=== PATIENT | male | born 1985 | race Caucasian/White ===

== ENCOUNTER 2016-09-17 21:42 | Emergency (ER) | payer MEDICAID, OTHER ==
[~2016-09-17] VITALS: Ht 185.4 cm; Wt 92.1 kg
[~2016-09-17 21:42] MED LIST: MECL-62 PO
[2016-09-17 22:15] VITALS: BP 154/91; PULSE 94; RESP 18; TEMP 98.2; O2SAT 98
[2016-09-17] MEDS ORDERED: KETOROLAC TROMETHAMINE 60 MG/2 ML (IM) VIAL IM ONE (22:30)
[2016-09-17] MEDS ORDERED: TRAM50TA PO (22:39)
[2016-09-17] MEDS ORDERED: DICL75TA PO (22:39)
--- NOTE | 2016-09-17 22:39 | PD ---
HPI Chief Complaint: Pain: Acute or Chronic Time Seen by Provider: 22:34 Travel History International Travel<30 days: No Contact w/Intl Traveler<30days: No Traveled to known affect area: No History of Present Illness HPI 31-year-old male that presents to the ED for evaluation of left arch pain. Per patient she's had this for about 2-3 months now. Per patient his been reading about plantar fasciitis online his been trying to do OTC treatments with some relief that today for some reason the pain got worse. Per patient is hard to walk with it. He denies any trauma or injury. 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 He has no allergies to medication. No chest pain or shortness of breath. Per patient he has been trying to make appointments with a graphic design teacher for follow-up but nobody will take him. He states that currently the pain is 8 out of 10 and gets worse with touch as well as with weightbearing. He has no allergies to medication. No other medical problems. PFSH Past Medical History Anxiety: No Depression: No Heart Rhythm Problems: Yes (family hx of wpw, brother affected. ) Cancer: No Cardiovascular Problems: No Chemotherapy: No Diminished Hearing: No Endocrine: No Genitourinary: No Headaches: Yes Immune Disorder: No Musculoskeletal: Yes (FX L1, FX RT ANKLE) Neurologic: Yes (SKULL FX, SAH 03/2013, SMELL/TASTE/HEARING RIGHT EAR EFFECTED. ) Psychiatric: No Reproductive: No Respiratory: No Immunizations Current: Yes Radiation Therapy: No Tetanus Vaccination: < 5 Years Influenza Vaccination: No Past Surgical History Surgical History: No Previous Surgery Tonsillectomy: Yes Other Surgery: No Social History Alcohol Use: Yes (OCCASIONAL) Tobacco Use: Yes (QUIT 6 MO AGO) Substance Use: No Allergies-Medications (Allergen,Severity, Reaction): Coded Allergies: No Known Allergies (Verified , 09/17/16) Reported Meds & Prescriptions Reported Meds & Active Scripts Active No Active Prescriptions or Reported Medications Review of Systems Except as stated in HPI: all other systems reviewed are Neg Physical Exam Narrative GENERAL: SKIN: Warm and dry. HEAD: Atraumatic. Normocephalic. EYES: Pupils equal and round. No scleral icterus. No injection or drainage. ENT: No nasal bleeding or discharge. Mucous membranes pink and moist. Tongue is midline. No uvula deviation. NECK: Trachea midline. No JVD. CARDIOVASCULAR: Regular rate and rhythm. RESPIRATORY: No accessory muscle use. Clear to auscultation. Breath sounds equal bilaterally. GASTROINTESTINAL: Abdomen soft, non-tender, nondistended. Hepatic and splenic margins not palpable. MUSCULOSKELETAL: Extremities without clubbing, cyanosis, or edema. No obvious deformities. Patient has reproducible pain on the left plantar aspect of the medial aspect of the foot. Very tender to touch in this area. Weightbearing makes it worse. No obvious bony deformity noted. No mass or cyst noted. Full range of motion of the entire food and ankle. NEUROLOGICAL: Awake and alert. No obvious cranial nerve deficits. Motor grossly within normal limits. Five out of 5 muscle strength in the arms and legs. Normal speech. PSYCHIATRIC: Appropriate mood and affect; insight and judgment normal. Data Data Last Documented VS Vital Signs Date Time Temp Pulse Resp B/P Pulse Ox O2 Delivery O2 Flow Rate FiO2 09/17/16 22:15 98.2 94 18 154/91 98 Orders Foot, Complete (Oex0hcl) (09/17/16 22:23) Ketorolac Inj (Toradol Inj) (09/17/16 22:30) MDM Medical Decision Making Medical Screen Exam Complete: Yes Emergency Medical Condition: Yes Medical Record Reviewed: Yes Interpretation(s) X-ray of the left foot show no sign of bony injury. Differential Diagnosis Plan the fasciitis versus acute on chronic pain versus tendinitis Narrative Course 31-year-old male that presents to the ED for evaluation of left arch pain. Patient was properly examined and was found to have signs and symptoms consistent appears to be plantar fasciitis. X-ray was done. This was negative for acute disease. Patient was reassured. Patient will be given a prescription for diclofenac sodium and tramadol. Patient was told to follow up closely with PCP. See ED for worsening symptoms. Diagnosis Primary Impression: Plantar fasciitis of left foot Patient Instructions: General Instructions Additional Instructions: Take medications as prescribed. Follow with PCP. See ED worsening symptoms. Ice or warm compresses as needed. Med/Other Pt SpecificInfo: Prescription(s) given Scripts No Active Prescriptions or Reported Meds Disposition: 01 DISCHARGE HOME Condition: Stable Jas Devine Sep 17, 2016 22:38
--- NOTE | 2016-09-17 22:51 | RADHPO ---
EXAM DATE/TIME: 09/17/2016 22:37 [facility] COMPARISON: No previous studies available for comparison. INDICATIONS : Left foot pain in arch for 3 months, no known injury. MEDICAL HISTORY : None. SURGICAL HISTORY : None. ENCOUNTER: Initial ACUITY: 3 months PAIN SCORE: 5/10 LOCATION: Left foot. FINDINGS: No definite fractures, or dislocations are identified. No definite lytic or sclerotic lesion is seen . The joint spaces are well maintained. CONCLUSION: Unremarkable study. Ame Olsen MD on September 17, 2016 at 22:48 Board Certified Radiologist. This report was verified electronically.
== END 2016-09-17 22:56 | disposition home or self-care (01) ==
LOC: PHEFT 21:42
DX: M72.2 Plantar fascial fibromatosis (principal)
CPT/HCPCS: 73630; 96372; 99283; J1885

== ENCOUNTER 2016-09-21 13:11 | Emergency (ER) | payer MEDICAID, OTHER ==
[~2016-09-21] VITALS: Ht 185.4 cm; Wt 89.8 kg
[~2016-09-21 13:11] MED LIST changes: +DICL75TA PO; -MECL-62 PO; +TRAM50TA PO
[2016-09-21 13:15] VITALS: BP 149/111; PULSE 75; RESP 16; TEMP 97.7; O2SAT 100
[2016-09-21] MEDS ORDERED: SODIUM CHLOR 0.9% 1000 ML INJ 1,000 ML IV SCH (13:27)
[2016-09-21] MEDS ORDERED: ONDANSETRON HCL 4 MG/2 ML VIAL IVP ONE (13:30)
--- NOTE | 2016-09-21 13:34 | PD ---
HPI Chief Complaint: GI Complaint Time Seen by Provider: 13:27 Travel History International Travel<30 days: No Contact w/Intl Traveler<30days: No Traveled to known affect area: No History of Present Illness HPI Patient is a 31-year-old male presents with nausea vomiting and diarrhea since about 08 100 this morning. Patient states that he had a few cocktails last night and his last one was at 11 PM. He states this happened to him one time in the past. Patient states she's having "bile" production but denies any green or bloody emesis. States his belly is cramping but not truly painful. States the cramping nature is periumbilical. Denies any fevers. Denies any bloody or melena stools. Denies any dysuria. States symptoms been stable moderate in intensity. PFSH Past Medical History Anxiety: No Depression: No Heart Rhythm Problems: Yes (family hx of wpw, brother affected. ) Cancer: No Cardiovascular Problems: No Chemotherapy: No Diminished Hearing: No Endocrine: No Genitourinary: No Headaches: Yes Immune Disorder: No Musculoskeletal: Yes (FX L1, FX RT ANKLE) Neurologic: Yes (SKULL FX, SAH 03/2013, SMELL/TASTE/HEARING RIGHT EAR EFFECTED. ) Psychiatric: No Reproductive: No Respiratory: No Immunizations Current: Yes Radiation Therapy: No Past Surgical History Tonsillectomy: Yes Other Surgery: No Social History Alcohol Use: Yes (OCCASIONAL) Tobacco Use: Yes (QUIT 6 MO AGO) Substance Use: No Allergies-Medications (Allergen,Severity, Reaction): Coded Allergies: No Known Allergies (Verified , 09/21/16) Reported Meds & Prescriptions Reported Meds & Active Scripts Active Zofran Odt (Ondansetron Odt) 4 Mg Tab 4 Mg SL Q6HR PRN Phenergan (Promethazine HCl) 25 Mg Tab 25 Mg PO Q6H PRN Review of Systems Except as stated in HPI: all other systems reviewed are Neg Physical Exam Narrative GENERAL: Well-developed well-nourished no apparent distress SKIN: Focused skin assessment warm/dry. HEAD: Atraumatic. Normocephalic. EYES: Pupils equal and round. No scleral icterus. No injection or drainage. ENT: No nasal bleeding or discharge. Mucous membranes pink and moist. NECK: Trachea midline. No JVD. CARDIOVASCULAR: Regular rate and rhythm. No murmur appreciated. RESPIRATORY: No accessory muscle use. Clear to auscultation. Breath sounds equal bilaterally. GASTROINTESTINAL: Abdomen soft, non-tender, nondistended. Hepatic and splenic margins not palpable. MUSCULOSKELETAL: No obvious deformities. No clubbing. No cyanosis. No edema. NEUROLOGICAL: Awake and alert. No obvious cranial nerve deficits. Motor grossly within normal limits. Normal speech. PSYCHIATRIC: Appropriate mood and affect; insight and judgment normal. Data Data Last Documented VS Vital Signs Date Time Temp Pulse Resp B/P Pulse Ox O2 Delivery O2 Flow Rate FiO2 09/21/16 13:41 16 100 Room Air 09/21/16 13:15 97.7 75 149/111 Orders Complete Blood Count With Diff (09/21/16 13:27) Comprehensive Metabolic Panel (09/21/16 13:27) Lipase (09/21/16 13:27) Iv Access Insert/Monitor (09/21/16 13:27) Ecg Monitoring (09/21/16 13:27) Oximetry (09/21/16 13:27) Ondansetron Inj (Zofran Inj) (09/21/16 13:30) Sodium Chlor 0.9% 1000 Ml Inj (Ns 1000 M (09/21/16 13:27) Sodium Chloride 0.9% Flush (Ns Flush) (09/21/16 13:30) Ct Abd/Pel W Iv Contrast(Rout) (09/21/16 ) Iohexol 350 Inj (Omnipaque 350 Inj) (09/21/16 14:48) Ondansetron Inj (Zofran Inj) (09/21/16 15:30) Sodium Chlor 0.9% 1000 Ml Inj (Ns 1000 M (09/21/16 15:30) Labs Laboratory Tests Test 09/21/16 13:30 White Blood Count 14.1 TH/MM3 Red Blood Count 5.69 MIL/MM3 Hemoglobin 16.7 GM/DL Hematocrit 49.2 % Mean Corpuscular Volume 86.4 FL Mean Corpuscular Hemoglobin 29.4 PG Mean Corpuscular Hemoglobin 34.0 % Concent Red Cell Distribution Width 12.1 % Platelet Count 216 TH/MM3 Mean Platelet Volume 8.6 FL Neutrophils (%) (Auto) 82.0 % Lymphocytes (%) (Auto) 11.2 % Monocytes (%) (Auto) 4.4 % Eosinophils (%) (Auto) 0.2 % Basophils (%) (Auto) 2.2 % Neutrophils # (Auto) 11.6 TH/MM3 Lymphocytes # (Auto) 1.6 TH/MM3 Monocytes # (Auto) 0.6 TH/MM3 Eosinophils # (Auto) 0.0 TH/MM3 Basophils # (Auto) 0.3 TH/MM3 CBC Comment DIFF FINAL Differential Comment Sodium Level 142 MEQ/L Potassium Level 4.3 MEQ/L Chloride Level 107 MEQ/L Carbon Dioxide Level 26.7 MEQ/L Anion Gap 8 MEQ/L Blood Urea Nitrogen 14 MG/DL Creatinine 0.92 MG/DL Estimat Glomerular Filtration 96 ML/MIN Rate Random Glucose 140 MG/DL Calcium Level 9.6 MG/DL Total Bilirubin 0.6 MG/DL Aspartate Amino Transf 40 U/L (AST/SGOT) Alanine Aminotransferase 97 U/L (ALT/SGPT) Alkaline Phosphatase 85 U/L Total Protein 8.1 GM/DL Albumin 4.7 GM/DL Lipase 132 U/L MDM Medical Decision Making Medical Screen Exam Complete: Yes Emergency Medical Condition: Yes Differential Diagnosis Gastritis, gastritis, pancreatitis, less likely is appendicitis. Narrative Course Patient was roomed in emergency department, he appears well and in no obvious distress. He was given Zofran, despite this he did have a large volume emesis in the emergency department. His labs were notable for transaminitis with an ALT AST predominance. Patient states she's been tested for hepatitis in the past and been negative. I recommended that he pursue repeat testing on outpatient basis. He is not jaundice and is making adequate protein at this point and is not an acute liver failure. He verbalized understanding. Patient's labs do show an elevated white blood cell count, after reviewing the labs he was reexamined and states that his discomfort is more in the right lower quadrant at this point. He was offered pain medicine for a second time and declined. CT scan will be pursued to rule out appendicitis: Last 24 hours Impressions Abdomen/Pelvis CT 09/21/16 0000 Signed Impressions: Service Date/Time: September 14:36 - CONCLUSION: Normal trauma CT of the abdomen and pelvis. Stephen Gimenez MD He was given an additional dose of Zofran. Discussed with him that I be happy to observe him for longer in the emergency department that he would like to go home and manage his symptoms at home. Prescription for Zofran and Phenergan were written. He is stable for discharge at this time. Diagnosis Primary Impression: Abdominal pain Qualified Code: R10.84 - Generalized abdominal pain Additional Impression: Gastroenteritis Med/Other Pt SpecificInfo: Prescription(s) given Scripts Ondansetron Odt (Zofran Odt)4 Mg Tab4 Mg SL Q6HR PRN (Nausea/Vomiting) #30 TAB Ref 0 Prov:Diogo Garcia MD 09/21/16 Promethazine (Phenergan)25 Mg Tab25 Mg PO Q6H PRN (Nausea/Vomiting) #20 TAB Ref 0 Prov:Diogo Garcia MD 09/21/16 Disposition: DISCHARGE HOME Condition: Stable Diogo Garcia MD September 21, 2016 13:34
[2016-09-21 13:41] VITALS: RESP 16; O2SAT 100
[2016-09-21] MEDS: SODIUM CHLORIDE 0.9% FLUSH 10 ML FLUSH IV FLUSH PRN ×2 (13:49→15:32)
[2016-09-21 13:50] LABS: AUTOMATED NEUTROPHIL # 11.6 TH/MM3 (1.8-7.7); BASOPHIL # 0.3 TH/MM3 (0-0.2); BASOPHIL % 2.2 % (0.0-2.0); EOSINOPHIL % 0.2 % (0.0-4.0); HEMATOCRIT 49.2 % (39.0-51.0); LYMPH % 11.2 % (9.0-44.0); LYMPHOCYTE # 1.6 TH/MM3 (1.0-4.8); MEAN CELL VOLUME 86.4 FL (80.0-100.0); MEAN CORPUSCULAR HEMOGLOBIN 29.4 PG (27.0-34.0); MONO % 4.4 % (0.0-8.0); PLATELET COUNT 216 TH/MM3 (150-450); RED BLOOD COUNT 5.69 MIL/MM3 (4.50-5.90); RED CELL DISTRIBUTION WIDTH 12.1 % (11.6-17.2); WHITE BLOOD COUNT 14.1 TH/MM3 (4.0-11.0)
[2016-09-21 13:51] LABS: HEMO FLAGS DIFF FINAL
[2016-09-21 13:59] LABS: CHLORIDE 107 MEQ/L (98-107); POTASSIUM 4.3 MEQ/L (3.5-5.1); SODIUM (NA) 142 MEQ/L (136-145)
[2016-09-21 14:03] LABS: ANION GAP 8 MEQ/L (5-15); BICARBONATE 26.7 MEQ/L (21.0-32.0); BLOOD UREA NITROGEN 14 MG/DL (7-18)
[2016-09-21 14:05] LABS: ALT (GPT) 97 U/L (12-78)
[2016-09-21 14:06] LABS: AST (GOT) 40 U/L (15-37); GLOMERULAR FILTRATION RATE 96 ML/MIN (>89)
[2016-09-21 14:07] LABS: TOTAL BILIRUBIN ADULT 0.6 MG/DL (0.2-1.0)
[2016-09-21 14:08] LABS: ALKALINE PHOSPHATASE 85 U/L (45-117)
[2016-09-21 14:20] VITALS: BP 137/87; PULSE 80; RESP 16
[2016-09-21] MEDS ORDERED: IOHEXOL 350 MG/ML 10 ML VIAL (for RAD DIAG) IV ONE (14:48)
--- NOTE | 2016-09-21 15:03 | RADHPO ---
EXAM DATE/TIME: 09/21/2016 14:36 [facility] COMPARISON: CT ABDOMEN & PELVIS W CONTRAST, April 13, 2013, 1:01. INDICATIONS : Bilateral lower quadrant pain. Nausea, vomiting and diarrhea. IV CONTRAST: 85 cc Omnipaque 350 (iohexol) IV ORAL CONTRAST: No oral contrast ingested. RADIATION DOSE: 10.54 CTDIvol (mGy) MEDICAL HISTORY : Skull fracture. SURGICAL HISTORY : None. ENCOUNTER: Initial ACUITY: 1 day PAIN SCALE: 6/10 LOCATION: Bilateral lower quadrant TECHNIQUE: Volumetric scanning of the abdomen and pelvis was performed. Using automated exposure control and ad justment of the mA and/or kV according to patient size, radiation dose was kept as low as reasonably achievable to obtain optimal diagnostic quality images. FINDINGS: LOWER LUNGS: The visualized lower lungs are clear. LIVER: Homogeneous density without lesion. There is no dilation of the biliary tree. No calcified gallston es. SPLEEN: Normal size without lesion. PANCREAS: Within normal limits. KIDNEYS: Normal in size and shape. There is no mass, stone or hydronephrosis. ADRENAL GLANDS: Within normal limits. VASCULAR: There is no aortic aneurysm. BOWEL/MESENTERY: The stomach, small bowel, and colon demonstrate no acute abnormality. There is no free intraperitone al air or fluid. ABDOMINAL WALL: Within normal limits. RETROPERITONEUM: There is no lymphadenopathy. BLADDER: No wall thickening or mass. REPRODUCTIVE: Within normal limits. INGUINAL: There is no lymphadenopathy or hernia. MUSCULOSKELETAL: Within normal limits for patient age. CONCLUSION: Normal trauma CT of the abdomen and pelvis. Stephen Gimenez MD on September 21, 2016 at 14:59 Board Certified Radiologist. This report was verified electronically.
[2016-09-21 15:15] VITALS: BP 136/83; PULSE 77; RESP 16
[2016-09-21] MEDS ORDERED: ONDANSETRON HCL 4 MG/2 ML VIAL IV PUSH ONE (15:30)
[2016-09-21] MEDS: SODIUM CHLOR 0.9% 1000 ML INJ 1,000 ML IV ONE ×2 (15:30→15:59)
[2016-09-21] MEDS ORDERED: PROM25TA5 PO (15:37)
[2016-09-21] MEDS ORDERED: ZOFR4TAB3 SL (15:38)
[2016-09-21 16:14] VITALS: BP 131/87
== END 2016-09-21 16:15 | disposition home or self-care (01) ==
LOC: PHED 13:11
DX: K52.9 Noninfective gastroenteritis and colitis, unspecified (principal); R10.84 Generalized abdominal pain
CPT/HCPCS: 74177; 80053; 83690; 85025; 96361; 96374; 96376; 99284; J2405; J7030; Q9967

== ENCOUNTER 2017-04-02 18:02 | Emergency (ER) | payer MEDICAID ==
[~2017-04-02] VITALS: Ht 185.4 cm; Wt 90.0 kg
[~2017-04-02 18:02] MED LIST changes: -DICL75TA PO; +PROM25TA5 PO; -TRAM50TA PO; +ZOFR4TAB3 SL
[2017-04-02 18:07] VITALS: BP 159/93; PULSE 96; RESP 16; TEMP 98.6; O2SAT 99
[2017-04-02] MEDS ORDERED: IBUP1TAB5 PO (18:20)
--- NOTE | 2017-04-02 18:27 | PD ---
HPI Chief Complaint: Complaint Time Seen by Provider: 18:16 Travel History International Travel<30 days: No Contact w/Intl Traveler<30days: No Traveled to known affect area: No History of Present Illness HPI 31-year-old male complains of right flank pain and blood in the semen. Patient states that the symptoms started 2 days ago. Patient states that the pain aching pain localized to the right flank area. Patient denies any pain radiation. Patient states the pain is worse with movement. Patient denies any nausea vomiting. Patient denies any fever chills. Patient denies any dysuria or frequency. Patient noticed blood in the semen 2 nights ago but not since then. Patient denies any groin pain. Patient states that he has occasional discomfort in the left testicle. Patient Denies any urethral discharge. PFSH Past Medical History Anxiety: No Depression: No Heart Rhythm Problems: No (family hx of wpw, brother affected. ) Cancer: No Cardiovascular Problems: No Chemotherapy: No Diminished Hearing: No Endocrine: No Genitourinary: No Headaches: Yes Immune Disorder: No Musculoskeletal: Yes (FX L1, FX RT ANKLE) Neurologic: Yes (SKULL FX, SAH 03/2013, SMELL/TASTE/HEARING RIGHT EAR EFFECTED. ) Psychiatric: No Reproductive: No Respiratory: No Immunizations Current: Yes Radiation Therapy: No Past Surgical History Tonsillectomy: Yes Other Surgery: No Social History Alcohol Use: Yes (OCCASIONAL- mix drinks) Tobacco Use: No (quit 3 yrs ago smoked 1/2 ppd of cigs) Substance Use: No Allergies-Medications (Allergen,Severity, Reaction): Coded Allergies: No Known Allergies (Verified Adverse Reaction, Unknown, 04/02/17) Reported Meds & Prescriptions Reported Meds & Active Scripts Active Zofran Odt (Ondansetron Odt) 4 Mg Tab 4 Mg SL Q6HR PRN Phenergan (Promethazine HCl) 25 Mg Tab 25 Mg PO Q6H PRN Review of Systems General / Constitutional: No: Fever Eyes: No: Visual changes HENT: No: Headaches Cardiovascular: No: Chest Pain or Discomfort Respiratory: No: Shortness of Breath Gastrointestinal: No: Abdominal Pain Genitourinary: No: Dysuria Musculoskeletal: No: Pain Skin: No Rash Neurologic: No: Weakness Psychiatric: No: Depression Endocrine: No: Polydipsia Hematologic/Lymphatic: No: Easy Bruising Physical Exam Narrative GENERAL: Well-nourished, well-developed patient. SKIN: Focused skin assessment warm/dry. HEAD: Normocephalic. EYES: No scleral icterus. No injection or drainage. NECK: Supple, trachea midline. No JVD or lymphadenopathy. CARDIOVASCULAR: Regular rate and rhythm without murmurs, gallops, or rubs. RESPIRATORY: Breath sounds equal bilaterally. No accessory muscle use. GASTROINTESTINAL: Abdomen soft, non-tender, nondistended. MUSCULOSKELETAL: No cyanosis, or edema. BACK: Mild tenderness on palpation right flank area, without obvious deformity. No CVA tenderness. exam: No urethral discharge. No penile lesion. No tenderness on palpation of the testicle. No tenderness on palpation of the spermatic cord. No evidence of hernia noted. Data Data Last Documented VS Vital Signs Date Time Temp Pulse Resp B/P (MAP) Pulse Ox O2 Delivery O2 Flow Rate FiO2 04/02/17 18:07 98.6 96 16 159/93 (115) 99 Orders Orders Urinalysis - C+S If Indicated (04/02/17 18:16) Ct Abd/Pel W/O Iv Contrast (04/02/17 18:16) MDM Medical Decision Making Medical Screen Exam Complete: Yes Emergency Medical Condition: Yes Differential Diagnosis Differential diagnosis including nephrolithiasis, urethritis, epididymitis, prostatitis. Narrative Course 31-year-old male with blood in the semen, right flank pain. Mariano Berg MD Apr 02, 2017 18:27
[2017-04-02 19:00] VITALS: BP 158/93; PULSE 87; RESP 18; O2SAT 100
--- NOTE | 2017-04-02 19:03 | RADRPT ---
EXAM DATE/TIME: 04/02/2017 18:27 [facility] COMPARISON: CT ABDOMEN & PELVIS W/O CONTRAST, December 13, 2014, 8:09. INDICATIONS : Right flank pain. Evaluate for renal stone. ORAL CONTRAST: No oral contrast ingested. RADIATION DOSE: 16.53 CTDIvol (mGy) MEDICAL HISTORY : None SURGICAL HISTORY : None. ENCOUNTER: Initial ACUITY: 2 days PAIN SCALE: 6/10 LOCATION: Right flank TECHNIQUE: Volumetric scanning of the abdomen and pelvis was performed. Using automated exposure control and ad justment of the mA and/or kV according to patient size, radiation dose was kept as low as reasonably achievable to obtain optimal diagnostic quality images. DICOM format image data is available electro nically for review and comparison. FINDINGS: LOWER LUNGS: The visualized lower lungs are clear. LIVER: Homogeneous density without lesion. There is no dilation of the biliary tree. No calcified gallston es. SPLEEN: Normal size without lesion. Splenules are seen at the splenic hilum. PANCREAS: Within normal limits. KIDNEYS: Normal in size and shape. There is no mass, stone, or hydronephrosis. ADRENAL GLANDS: Within normal limits. VASCULAR: There is no aortic aneurysm. BOWEL/MESENTERY: The stomach, small bowel, and colon demonstrate no acute abnormality. There is no free intraperitone al air or fluid. The appendix is normal. ABDOMINAL WALL: Within normal limits. RETROPERITONEUM: There is no lymphadenopathy. BLADDER: No wall thickening or mass. REPRODUCTIVE: Within normal limits. INGUINAL: There is no lymphadenopathy or hernia. MUSCULOSKELETAL: Within normal limits for patient age. CONCLUSION: No acute abnormality is seen. Renal stones are not seen. No hydronephrosis is seen. The appendix is n ormal. Stephen Rothman MD on April 02, 2017 at 18:57 Board Certified Radiologist. This report was verified electronically.
[2017-04-02 19:11] LABS: BLOOD, URINE NEG (NEG); GLUCOSE,URINE NEG (NEG); KETONE, URINE NEG (NEG); NITRITE,URINE NEG (NEG)
[2017-04-02 20:00] LABS: URINE COLOR YELLOW (YELLW/STRAW)
[2017-04-02 20:01] LABS: COMMENT (UR) CULT NOT INDICATED; CULTURE IF INDICATED CULT NOT INDICATED; SQUAMOUS EPITHELIAL CELL URINE 0-5 /hpf (0-5)
--- NOTE | 2017-04-02 21:01 | RADRPT ---
EXAM DATE/TIME: 04/02/2017 19:51 [facility] COMPARISON: No previous studies available for comparison. INDICATIONS : Testicular pain. MEDICAL HISTORY : Skull fracture. Subarachnoid hemorrhage. Irregular heartbeat. Right ankle fracture. SURGICAL HISTORY : Tonsillectomy. ENCOUNTER: Initial ACUITY: 1 week PAIN SCORE: 4/10 LOCATION: Bilateral scrotum. MEASUREMENTS: RIGHT TESTICLE: 3.4 x 3.0 x 2.5cm LEFT TESTICLE: 3.8 x 3.1 x 2.5cm FINDINGS: RIGHT TESTICLE: Homogeneous echotexture without intra or extratesticular mass. Blood flow is symmetric and within no rmal limits. No hydrocele or varicocele. Epididymis is within normal limits. LEFT TESTICLE: Homogeneous echotexture without intra or extratesticular mass. Blood flow is symmetric and within no rmal limits. There is a mild hydrocele. There is a moderate varicocele. Epididymis is within normal limits. SCROTUM: Within normal limits. CONCLUSION: Moderate left varicocele. The testicles appear normal. Stephen Rothman MD on April 02, 2017 at 20:58 Board Certified Radiologist. This report was verified electronically.
--- NOTE | 2017-04-02 21:06 | PD ---
Physical Exam Date Seen by Provider: Apr 02, 2017 Time Seen by Provider: 21:04 Narrative Patient was signed out to me by the previous ER physician. This is a 31-year- old male who came in complaining of blood in his semen. The previous ER physician initiated workup in the form of UA, scrotal ultrasound and CT scan of abdomen and pelvis since patient also complained of some right flank pain. The test results are back. CT and UA are within normal limit. The ultrasound shows some varicocele but otherwise negative. At this point I'm comfortable discharging the patient home. Data Data Last Documented VS Orders Orders Urinalysis - C+S If Indicated (04/02/17 18:16) Ct Abd/Pel W/O Iv Contrast (04/02/17 18:16) Us Testicles W Doppler (04/02/17 18:56) Ed Discharge Order (04/02/17 21:06) Labs Laboratory Tests Test 04/02/17 18:18 Urine Color YELLOW Urine Turbidity CLEAR Urine pH 6.0 Urine Specific [place] 1.013 Urine Protein NEG mg/dL Urine Glucose (UA) NEG mg/dL Urine Ketones NEG mg/dL Urine Occult Blood NEG Urine Nitrite NEG Urine Bilirubin NEG Urine Leukocyte Esterase NEG Urine Squamous Epithelial Cells 0-5 /hpf Microscopic Urinalysis Comment CULT NOT INDICATED MDM Supervised Visit with NISHA: No Diagnosis Primary Impression: Hematospermia Additional Impression: Varicocele present on ultrasound of scrotum Referrals: Jose M Becker DO 2 days Additional Instruction: Please return to the ER if the condition worsens or any other new concerns. You should not be lifting too much heavy weight. Follow-up with the urologist whose name and number been given to you. Wearing scrotal support may be helpful. Med/Other Pt SpecificInfo: Prescription(s) given Scripts Ciprofloxacin (Ciprofloxacin) 500 Mg Tab 500 MG PO BID for Infection for 7 Days, #14 TAB 0 Refills Prov: Julienne Garcia MD 04/02/17 Disposition: 01 DISCHARGE HOME Condition: Stable Julienne Garcia MD Apr 02, 2017 21:06
[2017-04-02] MEDS ORDERED: CIPR500T2 PO (21:10)
[2017-04-02 21:15] VITALS: BP 144/82
== END 2017-04-02 21:27 | disposition home or self-care (01) ==
LOC: PHED 18:02
DX: I86.1 Scrotal varices (principal); R36.1 Hematospermia
CPT/HCPCS: 74176; 76870; 81001; 93975

== ENCOUNTER 2017-10-05 10:31 | Emergency (ER) | payer MEDICAID ==
[~2017-10-05] VITALS: Ht 185.4 cm; Wt 86.8 kg
[~2017-10-05 10:31] MED LIST changes: +CIPR500T2 PO; +IBUP1TAB5 PO; -PROM25TA5 PO; -ZOFR4TAB3 SL
[2017-10-05 10:50] VITALS: BP 136/82; PULSE 78; RESP 16; TEMP 98.2; O2SAT 99
[2017-10-05] MEDS ORDERED: PANTOPRAZOLE SODIUM 40 MG VIAL IV PUSH ONE (11:00)
[2017-10-05] MEDS ORDERED: ONDANSETRON ODT 4 MG TAB PO ONE (11:00)
[2017-10-05] MEDS ORDERED: SODIUM CHLOR 0.9% 1000 ML INJ 1,000 ML IV ONE (11:00)
[2017-10-05 11:18] LABS: AUTOMATED NEUTROPHIL # 11.5 TH/MM3 (1.8-7.7); BASOPHIL # 0.3 TH/MM3 (0-0.2); BASOPHIL % 2.3 % (0.0-2.0); EOSINOPHIL % 0.2 % (0.0-4.0); HEMATOCRIT 44.6 % (39.0-51.0); HEMOGLOBIN 15.6 GM/DL (13.0-17.0); LYMPHOCYTE # 1.2 TH/MM3 (1.0-4.8); MEAN CELL VOLUME 86.1 FL (80.0-100.0); MEAN CORPUSCULAR HEMOGLOBIN 30.2 PG (27.0-34.0); MEAN CORPUSCULAR HGB CONC 35.1 % (32.0-36.0); MEAN PLATELET VOLUME 8.9 FL (7.0-11.0); MONO % 4.6 % (0.0-8.0); MONOCYTE # 0.6 TH/MM3 (0-0.9); NEUT % 83.9 % (16.0-70.0); PLATELET COUNT 201 TH/MM3 (150-450); RED BLOOD COUNT 5.18 MIL/MM3 (4.50-5.90); RED CELL DISTRIBUTION WIDTH 12.3 % (11.6-17.2); WHITE BLOOD COUNT 13.6 TH/MM3 (4.0-11.0)
--- NOTE | 2017-10-05 11:23 | PD ---
HPI Chief Complaint: GI Complaint Time Seen by Provider: 10:56 Travel History International Travel<30 days: No Contact w/Intl Traveler<30days: No Traveled to known affect area: No History of Present Illness HPI This is a 32-year-old healthy male presented the ER for evaluation of vomiting and abdominal pain for the last 2 days. Vomiting started first, nonbilious nonbloody nonprojectile. Patient has abdominal pain, 8 out of 10, diffuse wheezes in all abdomen, nothing makes it better but vomiting makes it worse. Normal bowel movement with no diarrhea or blood in the stool, last bowel movement was yesterday night, no previous abdominal surgeries, no recent travel or sick contacts. PFSH Past Medical History Medical History: Denies Significant Hx Anxiety: No Depression: No Cancer: No Cardiovascular Problems: No Chemotherapy: No Diminished Hearing: No Endocrine: No Genitourinary: No Headaches: Yes Immune Disorder: No Musculoskeletal: Yes (FX L1, FX RT ANKLE) Neurologic: Yes (SKULL FX, SAH 03/2013, SMELL/TASTE/HEARING RIGHT EAR EFFECTED. ) Psychiatric: No Reproductive: No Respiratory: No Immunizations Current: Yes Radiation Therapy: No Past Surgical History Surgical History: No Previous Surgery Tonsillectomy: Yes Other Surgery: No Social History Alcohol Use: No Tobacco Use: No (FORMER) Substance Use: No Allergies-Medications (Allergen,Severity, Reaction): Coded Allergies: No Known Allergies (Verified Adverse Reaction, Unknown, 10/05/17) Reported Meds & Prescriptions Reported Meds & Active Scripts Active Zofran Odt (Ondansetron Odt) 4 Mg Tab 4 Mg SL Q12HR PRN Review of Systems Except as stated in HPI: all other systems reviewed are Neg Physical Exam Narrative GENERAL: Alert oriented 3 no acute distress SKIN: Focused skin assessment warm/dry. HEAD: Atraumatic. Normocephalic. EYES: Pupils equal and round. No scleral icterus. No injection or drainage. ENT: No nasal bleeding or discharge. Mucous membranes pink and moist. NECK: Trachea midline. No JVD. CARDIOVASCULAR: Regular rate and rhythm. No murmur appreciated. RESPIRATORY: No accessory muscle use. Clear to auscultation. Breath sounds equal bilaterally. GASTROINTESTINAL: Abdomen soft, non-tender, nondistended. Hepatic and splenic margins not palpable. MUSCULOSKELETAL: No obvious deformities. No clubbing. No cyanosis. No edema. NEUROLOGICAL: Awake and alert. No obvious cranial nerve deficits. Motor grossly within normal limits. Normal speech. PSYCHIATRIC: Appropriate mood and affect; insight and judgment normal. Data Data Last Documented VS Vital Signs Date Time Temp Pulse Resp B/P (MAP) Pulse Ox O2 Delivery O2 Flow Rate FiO2 10/05/17 10:50 98.2 78 16 136/82 (100) 99 Orders Orders Complete Blood Count With Diff (10/05/17 11:00) Comprehensive Metabolic Panel (10/05/17 11:00) Lipase (10/05/17 11:00) D-Dimer (10/05/17 11:00) Urinalysis - C+S If Indicated (10/05/17 11:00) Ct Abd/Pel W Iv Contrast(Rout) (10/05/17 ) Pantoprazole Inj (Protonix Inj) (10/05/17 11:00) Sodium Chlor 0.9% 1000 Ml Inj (Ns 1000 M (10/05/17 11:00) Ondansetron Odt (Zofran Odt) (10/05/17 11:00) Iohexol 350 Inj (Omnipaque 350 Inj) (10/05/17 11:40) Ed Discharge Order (10/05/17 11:53) Labs Laboratory Tests Test 10/05/17 11:10 White Blood Count 13.6 TH/MM3 Red Blood Count 5.18 MIL/MM3 Hemoglobin 15.6 GM/DL Hematocrit 44.6 % Mean Corpuscular Volume 86.1 FL Mean Corpuscular Hemoglobin 30.2 PG Mean Corpuscular Hemoglobin Concent 35.1 % Red Cell Distribution Width 12.3 % Platelet Count 201 TH/MM3 Mean Platelet Volume 8.9 FL Neutrophils (%) (Auto) 83.9 % Lymphocytes (%) (Auto) 9.0 % Monocytes (%) (Auto) 4.6 % Eosinophils (%) (Auto) 0.2 % Basophils (%) (Auto) 2.3 % Neutrophils # (Auto) 11.5 TH/MM3 Lymphocytes # (Auto) 1.2 TH/MM3 Monocytes # (Auto) 0.6 TH/MM3 Eosinophils # (Auto) 0.0 TH/MM3 Basophils # (Auto) 0.3 TH/MM3 CBC Comment DIFF FINAL Differential Comment D-Dimer Quantitative (PE/DVT) LESS THAN 0.19 MG/L FEU Blood Urea Nitrogen 14 MG/DL Creatinine 0.92 MG/DL Random Glucose 119 MG/DL Total Protein 7.3 GM/DL Albumin 4.3 GM/DL Calcium Level 9.5 MG/DL Alkaline Phosphatase 82 U/L Aspartate Amino Transf (AST/SGOT) 18 U/L Alanine Aminotransferase (ALT/SGPT) 40 U/L Total Bilirubin 0.5 MG/DL Sodium Level 142 MEQ/L Potassium Level 3.8 MEQ/L Chloride Level 107 MEQ/L Carbon Dioxide Level 28.9 MEQ/L Anion Gap 6 MEQ/L Estimat Glomerular Filtration Rate 95 ML/MIN Lipase 137 U/L MDM Medical Decision Making Medical Screen Exam Complete: Yes Emergency Medical Condition: Yes Differential Diagnosis Gastroenteritis, gastritis, gallbladder disease, UTI. Narrative Course This is the 32-year-old male presented the ER for evaluation of abdominal and nausea and vomiting. Labs are within normal limits, physical examination is unremarkable, vitals are stable patient is afebrile, CAT scan of the abdomen reveals no findings. I believe his symptoms could be attributed to gastroenteritis with vomiting is causing the abdominal wall pain. Give the patient antiemetics and he improved here in the ER with a bag of fluids meanwhile encouraged him to had drink lots of fluids and to follow-up with his primary care physician and return to ER if symptoms change or do not improve. Last 24 hours Impressions Abdomen/Pelvis CT 10/05/17 0000 Signed Impressions: Service Date/Time: Thursday, October 05, 2017 11:29 - CONCLUSION: Normal examination. Josh Mario MD Laboratory Tests Test 10/05/17 11:10 White Blood Count 13.6 TH/MM3 Red Blood Count 5.18 MIL/MM3 Hemoglobin 15.6 GM/DL Hematocrit 44.6 % Mean Corpuscular Volume 86.1 FL Mean Corpuscular Hemoglobin 30.2 PG Mean Corpuscular Hemoglobin Concent 35.1 % Red Cell Distribution Width 12.3 % Platelet Count 201 TH/MM3 Mean Platelet Volume 8.9 FL Neutrophils (%) (Auto) 83.9 % Lymphocytes (%) (Auto) 9.0 % Monocytes (%) (Auto) 4.6 % Eosinophils (%) (Auto) 0.2 % Basophils (%) (Auto) 2.3 % Neutrophils # (Auto) 11.5 TH/MM3 Lymphocytes # (Auto) 1.2 TH/MM3 Monocytes # (Auto) 0.6 TH/MM3 Eosinophils # (Auto) 0.0 TH/MM3 Basophils # (Auto) 0.3 TH/MM3 CBC Comment DIFF FINAL Differential Comment D-Dimer Quantitative (PE/DVT) LESS THAN 0.19 MG/L FEU Blood Urea Nitrogen 14 MG/DL Creatinine 0.92 MG/DL Random Glucose 119 MG/DL Total Protein 7.3 GM/DL Albumin 4.3 GM/DL Calcium Level 9.5 MG/DL Alkaline Phosphatase 82 U/L Aspartate Amino Transf (AST/SGOT) 18 U/L Alanine Aminotransferase (ALT/SGPT) 40 U/L Total Bilirubin 0.5 MG/DL Sodium Level 142 MEQ/L Potassium Level 3.8 MEQ/L Chloride Level 107 MEQ/L Carbon Dioxide Level 28.9 MEQ/L Anion Gap 6 MEQ/L Estimat Glomerular Filtration Rate 95 ML/MIN Lipase 137 U/L Diagnosis Primary Impression: Gastroenteritis Additional Instructions: Follow-up with primary care physician and return here if symptoms change or do not improve. Scripts Ondansetron Odt (Zofran Odt) 4 Mg Tab 4 MG SL Q12HR Y for Nausea/Vomiting, #20 TAB 0 Refills Prov: Teto Porras MD 10/05/17 Disposition: 01 DISCHARGE HOME Condition: Stable Teto Porras MD October 05, 2017 11:23
[2017-10-05 11:37] LABS: CHLORIDE 107 MEQ/L (98-107); SODIUM (NA) 142 MEQ/L (136-145)
[2017-10-05] MEDS ORDERED: IOHEXOL 350 MG/ML 10 ML VIAL (for RAD DIAG) IVCONTRAST ONE (11:40)
[2017-10-05 11:42] LABS: CALCIUM 9.5 MG/DL (8.5-10.1); GLUCOSE,RANDOM 119 MG/DL (74-106)
[2017-10-05 11:43] LABS: ALBUMIN 4.3 GM/DL (3.4-5.0); BICARBONATE 28.9 MEQ/L (21.0-32.0); BLOOD UREA NITROGEN 14 MG/DL (7-18)
[2017-10-05 11:46] LABS: ALT (GPT) 40 U/L (12-78)
--- NOTE | 2017-10-05 11:46 | RADRPT ---
EXAM DATE/TIME: 10/05/2017 11:29 [facility] COMPARISON: CT ABDOMEN & PELVIS W CONTRAST, September 21, 2016, 14:36. INDICATIONS : Diffuse abdominal pain and vomiting x 2 days. IV CONTRAST: 85 cc Omnipaque 350 (iohexol) IV ORAL CONTRAST: No oral contrast ingested. RADIATION DOSE: 10.54 CTDIvol (mGy) MEDICAL HISTORY : None SURGICAL HISTORY : None. ENCOUNTER: Initial ACUITY: 2 days PAIN SCALE: 7/10 LOCATION: Abdomen. TECHNIQUE: Volumetric scanning of the abdomen and pelvis was performed. Using automated exposure control and ad justment of the mA and/or kV according to patient size, radiation dose was kept as low as reasonably achievable to obtain optimal diagnostic quality images. DICOM format image data is available electro nically for review and comparison. FINDINGS: LOWER LUNGS: The visualized lower lungs are clear. LIVER: Homogeneous density without lesion. There is no dilation of the biliary tree. No calcified gallston es. SPLEEN: Normal size without lesion. PANCREAS: Within normal limits. KIDNEYS: Normal in size and shape. There is no mass, stone or hydronephrosis. ADRENAL GLANDS: Within normal limits. VASCULAR: There is no aortic aneurysm. BOWEL/MESENTERY: The stomach, small bowel, and colon demonstrate no acute abnormality. There is no free intraperitone al air or fluid. ABDOMINAL WALL: Within normal limits. RETROPERITONEUM: There is no lymphadenopathy. BLADDER: No wall thickening or mass. REPRODUCTIVE: Within normal limits. INGUINAL: There is no lymphadenopathy or hernia. MUSCULOSKELETAL: Within normal limits for patient age. CONCLUSION: Normal examination. Josh Mario MD on October 05, 2017 at 11:43 Board Certified Radiologist. This report was verified electronically.
[2017-10-05 11:47] LABS: AST (GOT) 18 U/L (15-37); CREATININE 0.92 MG/DL (0.60-1.30); GLOMERULAR FILTRATION RATE 95 ML/MIN (>89)
[2017-10-05 11:48] LABS: TOTAL BILIRUBIN ADULT 0.5 MG/DL (0.2-1.0); TOTAL PROTEIN 7.3 GM/DL (6.4-8.2)
[2017-10-05 11:49] LABS: ALKALINE PHOSPHATASE 82 U/L (45-117)
[2017-10-05] MEDS ORDERED: ZOFR4TAB3 SL (11:54)
[2017-10-05 12:35] VITALS: BP 141/98
[2017-10-05 12:42] LABS: BILIRUBIN, URINE NEG (NEG); BLOOD, URINE NEG (NEG); GLUCOSE,URINE NEG (NEG); KETONE, URINE NEG (NEG); NITRITE,URINE NEG (NEG); URINE COLOR YELLOW (YELLW/STRAW); URINE LEUKOCYTE ESTERASE NEG (NEG)
[2017-10-05 12:47] LABS: SQUAMOUS EPITHELIAL CELL URINE 0-5 /hpf (0-5)
== END 2017-10-05 12:36 | disposition home or self-care (01) ==
LOC: PHED 10:31
DX: K52.9 Noninfective gastroenteritis and colitis, unspecified (principal); R10.9 Unspecified abdominal pain
CPT/HCPCS: 74177; 80053; 81001; 83690; 85025; 85379; 96361; 96374; 99284; C9113; J7030; Q9967